=== PATIENT | female | born 1945 ===

== ENCOUNTER 2021-07-16 19:14 | Outpatient (REF) | payer MEDICARE, OTHER, SELFPAY | END 2021-07-16 19:15 | disposition home or self-care (01) | LOC: NCHCN 19:14 | PROVIDERS: Visit Provider Physician Assistant | DX: R30.0 Dysuria (principal) | CPT/HCPCS: 87077; 87086; 87186 ==

== ENCOUNTER 2022-05-14 15:58 | Outpatient (REF) | payer MEDICARE, OTHER, SELFPAY ==
[2022-05-14 14:43] LABS: Anion Gap 7.9 mmol/L (3-11); BUN 12 mg/dL (7-18); CO2 26.1 mmol/L (21.0-32.0); CREATININE 0.9 mg/dL (0.55-1.02); Calcium 8.4 mg/dL (8.5-10.1); Chloride 101 mmol/L (98-107); Glucose 91 mg/dL (74-106); Potassium 4.5 mmol/L (3.5-5.1); Sodium 135 mmol/L (136-145)
== END 2022-05-14 15:59 | disposition home or self-care (01) ==
LOC: NCHCN 15:58
PROVIDERS: Visit Provider Physician Assistant
DX: E87.1 Hypo-osmolality and hyponatremia (principal)
CPT/HCPCS: 80048